=== PATIENT | male | born 1970 | race American Indian/Alaskan Native ===

== ENCOUNTER 2020-11-25 01:34 | Emergency (ER) | payer OTHER ==
[2020-11-25 02:54] VITALS: BP 130/77
[2020-11-25] MEDS ORDERED: cephALEXin 500 MG CAP PO ONE (03:00)
[2020-11-25] MEDS ORDERED: HYDROcodone/ACETAMINOPHEN 7.5-325MG TAB PO ONE (03:00)
[2020-11-25] MEDS ORDERED: LIDOCAINE-MPF (1%) 10 MG/1 ML VIAL 5 ML INFILTRATI ONE ×2 (03:00→07:33)
[2020-11-25] MEDS ORDERED: ONDANSETRON 4 MG ODT TAB PO ONE (03:00)
[2020-11-25] MEDS ORDERED: IBUPROFEN 600 MG TAB PO ONE (03:00)
--- NOTE | 2020-11-25 03:42 | XRay Report ---
Left hand-3 views INDICATION: DISTAL LEFT MIDDLE FINGER INJURY - PAIN. COMPARISON: None. IMPRESSION: Large laceration at the tip of the long finger with comminuted fracture of the distal tu ft of the distal phalanx. Normal alignment. No significant DJD. Signer Name: Rudy Baca MD Signed: 11/25/2020 3:37 AM Workstation Name: [id number]
[2020-11-25] MEDS ORDERED: TETANUS,DIPH,PERTUSS(ACELL) VACCINE 0.5 ML SYRINGE IM ONE (08:04)
--- NOTE | 2020-11-25 08:07 | Emergency Department Report ---
Upper Extremity - HPI Chief Complaint: Wound/Laceration Stated Complaint: FINGER INJURY Time Seen by Provider: 11/25/20 07:17 Upper Extremity: Left Middle Finger Occurred When: 1 Day Mechanism: Crush Severity: severe Symptoms: Yes Pain with Movement, Yes Swelling, Yes Laceration or Abrasion, No Limited Range of Movement Other History: Patient presents to the ER from detention with complaints of left middle finger injury. Patient states he slammed his finger in detention door last night around 8pm. Patient reports significant bleeding which has slowed down since arriving to ED. He is not up to date on his tetanus. He reports no other symptoms at this time. ED Review of Systems ROS: Stated complaint: FINGER INJURY Other details as noted in HPI Comment: All other systems reviewed and negative Eyes: denies: eye pain, eye discharge, vision change ENT: denies: ear pain, throat pain Respiratory: denies: cough, shortness of breath, SOB with exertion, SOB at rest, wheezing Musculoskeletal: arthralgia Skin: other (distal left finger laceration ) ED Past Medical Hx - Past Medical History Previous Medical History?: Yes Additional medical history: High Cholesterol - Surgical History Past Surgical History?: No - Social History Smoking Status: Never Smoker Substance Use Type: None - Medications Home Medications: Home Medications Medication Instructions Recorded Confirmed Last Taken Type Ibuprofen [Motrin] 800 mg PO Q8HR PRN #30 tablet 11/25/20 Unknown Rx cephALEXin [Keflex] 500 mg PO Q8HR #21 cap 11/25/20 Unknown Rx Upper Extremity Exam - Exam General: Vital signs noted. No distress. Alert and acting appropriately. Head and Torso: No HEENT Abnormality, No Neck Tenderness, No Chest/Lungs Abnormality CMS Exam: Yes Broken Skin, Yes Normal Distal Pulses, Yes Normal Capillary Refill, Yes Normal Distal Sensation Hand L/R Back: 1 - approximately 2cm lac noted to distal tip of finger with 1/3 of distal nail and nail bed involvement; No obvious bone viewed through wound but it is palpable when examining the wound. No obvious tendon injury. cap refill nl, sensation intact ED Course Vital Signs 11/25/20 02:39 Temperature 98.3 F Pulse Rate 64 Respiratory 18 Rate Blood Pressure 130/77 O2 Sat by Pulse 100 Oximetry - Laceration /Wound Repair Left Distal Finger Wound Location: upper extremity (Left middle finger ) Wound's Depth, Shape: irregular, nail-avulsed, contused tissue Wound Explored: clean Irrigated w/ Saline (ccs): 100 Betadine Prep?: Yes Anesthesia: 1% Lidocaine Volume Anesthetic (ccs): 10 (Did digital block of middle finger) Wound Repaired With: sutures Suture Size/Type: 3:0 (vicryl ) Number of Sutures: 6 Sterile Dressing Applied?: Yes (including aluminum finger splint) Progress: Patient tolerated procedure well. No complications. ED Medical Decision Making - Radiology Data Radiology results: report reviewed Patient: DEMETRIUS ROMANO MR#: [id number] : 1970 Acct:[id number] Age/Sex: 50 / M ADM Date: 11/25/20 Loc: ED Attending Dr: Ordering Physician: HARVEY REYEZ Date of Service: 11/25/20 Procedure(s): XR finger(s) 2+V LT Accession Number(s): [id number] cc: HARVEY REYEZ Fluoro Time In Minutes: Left hand-3 views INDICATION: DISTAL LEFT MIDDLE FINGER INJURY - PAIN. COMPARISON: None. IMPRESSION: Large laceration at the tip of the long finger with comminuted fracture of the distal tuft of the distal phalanx. Normal alignment. No significant DJD. Signer Name: Rudy Baca MD Signed: 11/25/2020 3:37 AM Workstation Name: [id number] Transcribed By: RICHIE Dictated By: Rudy Baca MD Electronically Authenticated By: Rudy Baca MD Signed Date/Time: 11/25/20336 DD/ 6 TD/TT: - Medical Decision Making Patient with distal tip lac to left middle finger involving 1/3 of distal nail and nail bed; Xray also shows tuft fracture; Wound was irrigated thoroughly and tach down (see procedure not for details) and dressing and finger splint applied. Informed patient that he has open fracture, he will be d/c with antibiotics but its important that he follow up with hand specialist next week. Patient expressed understanding of instructions and agreed with plan. Patient stable at time of d/c. Critical care attestation.: If time is entered above; I have spent that time in minutes in the direct care of this critically ill patient, excluding procedure time. ED Disposition Clinical Impression: Open finger fracture, Laceration of finger of left hand with damage to nail Disposition: DC-01 TO HOME OR SELFCARE Is pt being admited?: No Does the pt Need Aspirin: No Condition: Stable Instructions: Finger Fracture, Adult, [id number], Sutured Wound Care, [id number] Additional Instructions: It is important that you take the keflex and motrin as prescribed. It is i mportant that you follow up with hand specialist next week for continue evaluation and treatment as you have an open finger fracture. Do not remove splint or dressing until follow up with hand specialist. Do not get wound wet. Return to ED if symptoms changes or worsens in anyway. Prescriptions: cephALEXin [Keflex] 500 mg PO Q8HR #21 cap Ibuprofen [Motrin] 800 mg PO Q8HR PRN #30 tablet PRN Reason: PAIN Referrals: [facility] [Provider Group] - 3-5 Days Time of Disposition: 08:09
== END 2020-11-25 08:22 | disposition home or self-care (01) ==
LOC: ED 01:34 → EEVIPCON 01:34 → ED 08:22
DX: S61.213A Laceration without foreign body of left middle finger without damage to nail, initial encounter (principal); Z79.899 Other long term (current) drug therapy; X58.XXXA Exposure to other specified factors, initial encounter; Y93.89 Activity, other specified; Y92.89 Other specified places as the place of occurrence of the external cause; Y99.8 Other external cause status
CPT/HCPCS: 12001; 73140; 90471; 90715; 99284; J0696; Q0162